=== PATIENT | female | born 1985 ===

== ENCOUNTER → 2023-08-26 07:02 | Outpatient (REF) | payer OTHER, SELFPAY | LOC: HWRAD 07:02 | PROVIDERS: ATTENDING PHYSICIAN Family Medicine | DX: R74.8 Abnormal levels of other serum enzymes (principal) | CPT/HCPCS: 76700 ==

== ENCOUNTER 2024-02-06 09:07 | Outpatient (REF) | payer OTHER, SELFPAY ==
[2024-02-06] VITALS (7 sets, daily range): BP systolic 87–144; BP diastolic 60–97
[2024-02-06 09:41] LABS: % Basophils 0.7 % (0-2); % Eosinophils 4.4 % (0-6); % Immature Granulocytes 0.4 % (0-0.5); % Lymphocytes 32.3 % (20.5-51.1); % Monocytes 4.8 % (1.7-9.3); % Neutrophils 57.4 % (42.2-75.2); Absolute Basophils 0.1 10^3/uL (0-0.2); Absolute Eosinophils 0.4 10^3/uL (0-0.7); Absolute Monocytes 0.4 10^3/uL (0.1-0.6); Absolute Neutrophils 5.2 10^3/uL (1.4-6.5); Hematocrit 40.2 % (37.0-47.0); Hemoglobin 13.5 g/dL (12.0-16.0); Mean Corp Hgb Conc. 33.6 g/dL (33.0-37.0); Mean Corpuscular Volume 83.4 fL (81.0-99.0); Mean Platelet Volume 10.4 fL (7.4-10.4); Nucleated Red Blood Cells % 0 %; Platelet Count 318 10^3/uL (130-400); Red Blood Cell Count 4.82 10^6/uL (4.20-5.40); Red Cell Dist. Width 12.7 % (11.5-14.5); White Blood Cell Count 9.1 10^3/uL (4.8-10.8)
[2024-02-06 10:00] LABS: PT 13.2 Sec (11.4-14.6)
[2024-02-06] MEDS: NORCO 5/325 1 TABLET PO (13:02)
== END 2024-02-06 15:00 | disposition home or self-care (01) ==
LOC: REG 09:07
PROVIDERS: ATTENDING PHYSICIAN Internal Medicine Transplant Hepatology; FAMILY PHYSICIAN Family Medicine
DX: R76.8 Other specified abnormal immunological findings in serum (principal); K76.0 Fatty (change of) liver, not elsewhere classified
CPT/HCPCS: 88307; 36415; 47000; 76942; 85025; 85610; 88313; 99152

== ENCOUNTER → 2024-02-17 13:37 | Outpatient (REF) | payer OTHER, SELFPAY | LOC: PAVMRI 13:37 | PROVIDERS: ATTENDING PHYSICIAN Internal Medicine Gastroenterology; FAMILY PHYSICIAN Family Medicine | DX: K80.20 Calculus of gallbladder without cholecystitis without obstruction (principal); R74.8 Abnormal levels of other serum enzymes | CPT/HCPCS: 74183; A9575 ==

== ENCOUNTER 2025-04-16 08:43 | Outpatient (REF) | payer OTHER, SELFPAY ==
[2025-04-16] VITALS (11 sets, daily range): BP systolic 98–152; BP diastolic 52–86
[2025-04-16 09:32] LABS: INR 0.98; PT 13.3 Sec (11.4-14.6)
--- NOTE | 2025-04-16 12:03 | PTCARENOTE ---
during procedure patient c/o not being sedated. confirmed with patient that being sedated means still conscious but relaxed. patient reports she did not feel relaxed during liver biopsy. See intraprocedure notes for sedation medications given.
[place] aware. ordered additional dose of versed and additional dose of fentanyl.
== END 2025-04-16 13:45 | disposition home or self-care (01) ==
LOC: RADI 08:43
PROVIDERS: ATTENDING PHYSICIAN Internal Medicine Transplant Hepatology; FAMILY PHYSICIAN Family Medicine; OTHER PHYSICIAN Physician Assistant
DX: K75.81 Nonalcoholic steatohepatitis (NASH) (principal); D68.8 Other specified coagulation defects
CPT/HCPCS: 36415; 47000; 74176; 76942; 85610; 88307; 88313; 99152; 99153